=== PATIENT | female | born 1980 | race Caucasian/White ===

== ENCOUNTER 2019-02-16 15:24 | Emergency (ER) | payer MEDICARE ==
[~2019-02-16] VITALS: Ht 162.6 cm; Wt 86.2 kg
[2019-02-16 15:26] VITALS: BP 160/57
[2019-02-16] MEDS ORDERED: DIAZEPAM 5 MG TABLET ONE (15:45)
[2019-02-16] MEDS ORDERED: KETOROLAC 30 MG/1 ML ONE (15:46)
[2019-02-16] MEDS ORDERED: HYDROcodone/APAP 5/325 TABLET ONE (15:46)
[2019-02-16] MEDS ORDERED: DIAZEPAM 5 MG TABLET PO ONE (16:00)
[2019-02-16] MEDS ORDERED: KETOROLAC 30 MG/1 ML IM ONE (16:00)
[2019-02-16] MEDS ORDERED: HYDROcodone/APAP 5/325 TABLET PO ONE (16:00)
== END 2019-02-16 16:26 | disposition home or self-care (01) ==
LOC: ED 16:05
DX: S39.012A Strain of muscle, fascia and tendon of lower back, initial encounter (principal); G43.909 Migraine, unspecified, not intractable, without status migrainosus; J45.909 Unspecified asthma, uncomplicated; F17.200 Nicotine dependence, unspecified, uncomplicated; X58.XXXA Exposure to other specified factors, initial encounter; Y93.89 Activity, other specified; Y92.89 Other specified places as the place of occurrence of the external cause; Y99.8 Other external cause status
CPT/HCPCS: 96372; 99283; J1885

== ENCOUNTER 2019-02-28 07:52 | Emergency (ER) | payer MEDICARE ==
[~2019-02-28] VITALS: Ht 162.6 cm; Wt 84.4 kg
--- NOTE | 2019-02-28 07:59 | NUR ---
CALLED PATIENT NO ANSWER
--- NOTE | 2019-02-28 08:59 | NUR ---
TASK RN: PT AMBULATORY WITH STEADY GAIT TO ROOM FROM [facility] AT THIS TIME. 39 Y/O FEMALE PRESENTS TO ED WITH C/O LEFT ABD PAIN. PER PT "I'VE HAD ASTHMA FOR TWO YEARS AND A COUGH FOR TWO WEEKS. BUT MY STOMACH HURTS ON THE LEFT SIDE. IT'S LIKE A SUCTION FEELING BELOW MY RIBS. IT'S JUST ON THE LEFT SIDE. 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 I TOOK BENADRYL LAST NIGHT, TWO OF THEM. NOTHING TODAY, AND IT'S STILL THERE." PT GIVEN GOWN AND ASKED TO CHANGE. NADN. NO C/O N/V/D, TRAUMA, SYNCOPE, CP, SOB.
[2019-02-28 09:06] VITALS: BP 124/76
--- NOTE | 2019-02-28 09:35 | NUR ---
REPORT RECEIVED FROM GLORIA MUSA. PT A&O, RESPS EVEN AND UNLABORED. PT ABLE TO SPEAK IN FULL SENTENCES. PT GIVEN DC INSTRUCTIONS AND SCRIPT, EDUCATED REGARDING DC RX FOR PREDNISONE AND ALBUTEROL. PT AMB TO DC DESK WITH STEADY GAIT, NO COMPLAINT AT DC.
== END 2019-02-28 09:35 | disposition home or self-care (01) ==
LOC: ED 09:10
DX: J45.40 Moderate persistent asthma, uncomplicated (principal); L30.9 Dermatitis, unspecified; I10 Essential (primary) hypertension
CPT/HCPCS: 93005; 99283

== ENCOUNTER 2019-05-08 04:20 | Emergency (ER) | payer MEDICARE, MEDICAID ==
[~2019-05-08] VITALS: Ht 160 cm; Wt 73.0 kg
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
[2019-05-08] MEDS ORDERED: LORazepam 1MG TABLET ONE (04:57)
[2019-05-08] MEDS ORDERED: LORazepam 1MG TABLET PO ONE (05:00)
--- NOTE | 2019-05-08 05:00 | NUR ---
PT MEDICATED PER MAR
--- NOTE | 2019-05-08 05:12 | NUR ---
PT UP TO RESTROOM FOR URINE SAMPLE, EDUCATED ON CLEAN CATCH
--- NOTE | 2019-05-08 05:17 | NUR ---
PT RETURNED TO ROOM WITHOUT URINE CUP, STS I PUT IT IN THE HALLWAY. NO URINE CUP WHERE PT STS SHE PUT IT. PT RE EDUCATED ON NEED FOR URINE SAMPLE.
[2019-05-08 05:34] LABS: BASOPHILS # (AUTO) 0.03 x10^3/uL (0-0.1); BASOPHILS % (AUTO) 1 % (0-1); EOSINOPHILS # (AUTO) 0.09 x10^3/uL (0-0.4); EOSINOPHILS % (AUTO) 2 % (1-7); LYMPHOCYTES # (AUTO) 1.73 x10^3/uL (1-3.4); LYMPHOCYTES % (AUTO) 31 % (22-44); MD NO; MEAN CORPUSCULAR HEMOGLOBIN 23.9 pg (27.0-34.8); MEAN CORPUSCULAR HGB CONC 32.1 g/dL (32.4-35.8); MEAN CORPUSCULAR VOLUME 74.5 fL (80-100); MEAN PLATELET VOLUME 8.8 fL (7.4-10.4); MONOCYTES # (AUTO) 0.46 x10^3/uL (0.2-0.8); MONOCYTES % (AUTO) 8 % (2-9); NEUTROPHILS # (AUTO) 3.28 x10^3/uL (1.8-6.8); NEUTROPHILS % (AUTO) 59 % (42-75); PLATELET COUNT 332 x10^3/uL (130-400); RED BLOOD COUNT 4.46 x10^6/uL (3.82-5.3); RED CELL DISTRIBUTION WIDTH 20.2 % (9.6-15.2)
[2019-05-08 05:45] LABS: ALBUMIN 3.5 g/dL (3.4-5.0); ANION GAP 5 mmol/L (5-15); CALCIUM 8.5 mg/dL (8.5-10.1); CHLORIDE 112 mmol/L (98-107); CREATININE 0.71 mg/dL (0.55-1.02); SALICYLATE LEVEL 2.5 mg/dL (2.8-20.0)
--- NOTE | 2019-05-08 06:50 | NUR ---
REPORT RECEIVED, CARE ASSUMED.
[2019-05-08 06:55] LABS: HCG UR SG 1.013 (1.003-1.030); MICROSCOPIC AUTO
[2019-05-08 06:56] LABS: CULTURE INDICATED? YES
[2019-05-08 07:00] VITALS: BP 109/73
--- NOTE | 2019-05-08 07:00 | NUR ---
PT DOZING INTERMITTENTLY, AROUSES EASILY. PT COOPERATIVE WITH CARE, IE: V/S. PT ASKING FOR "BREAKFAST" DISCUSSED WILL REQUEST FROM DIETARY. UPDATED ON POC. WAITING FOR TEST RESULTS FOR FURTHER DISPOSITION. PT WITH BELONGINGS IN ROOM. NO OTHER NEEDS EXPRESSED AT THIS TIME.
[2019-05-08 07:05] LABS: AMPHETAMINE SCREEN, URINE Negative (Negative); BARBITURATE SCREEN, URINE Negative (Negative); BENZODIAZEPINE SCREEN, URINE Negative (Negative); CANNABINOID SCREEN, URINE Positive (Negative); COCAINE SCREEN, URINE Negative (Negative); METHADONE SCREEN, URINE Negative (Negative); OPIATE SCREEN, URINE Negative (Negative)
--- NOTE | 2019-05-08 07:29 | NUR ---
PTS "MAN" GETACHEW AT BEDSIDE. CONT TO WAIT FOR FURTHER DISPOSITION.
--- NOTE | 2019-05-08 08:11 | NUR ---
soc called for consult
--- NOTE | 2019-05-08 08:12 | NUR ---
PT PROVIDED WITH BREAKFAST. PT ASKING ABOUT GOING OUT TO SMOKE. DISCUSSED NOT GOING OUT R/T BEING IN THE HOSPITAL, NON SMOKING CAMPUS. PT STATES "I DONT WANT TO BE HERE ALL DAY" DISCUSSED TELE PSYCH EVAL. TELE PSYCH BERTRAND PLACED IN ROOM. NO OTHER NEEDS EXPRESSED AT THIS TIME.
--- NOTE | 2019-05-08 08:37 | NUR ---
SPOKE WITH DR. MORAN SOC TELE PSYCH, UPDATED ON PT. DR MORAN TO INTERVIEW PT VIEW TELE PSYCH ROBOT.
--- NOTE | 2019-05-08 09:34 | NUR ---
PT DOZING INTERMITTENLY, AROUSES EASILY. UPDATED PT ON WAITING FOR DC PAPERWORK. UNDERSTANDING VERBALIZED.
== END 2019-05-08 09:53 | disposition home or self-care (01) ==
LOC: ED 07:24
DX: F23 Brief psychotic disorder (principal); F15.959 Other stimulant use, unspecified with stimulant-induced psychotic disorder, unspecified; I10 Essential (primary) hypertension; G43.909 Migraine, unspecified, not intractable, without status migrainosus; J45.909 Unspecified asthma, uncomplicated
CPT/HCPCS: 36415; 80048; 80307; 81001; 81025; 82040; 85025; 87086; 87147; 99284

== ENCOUNTER 2019-06-30 15:35 | Emergency (ER) | payer MEDICARE, MEDICAID ==
[~2019-06-30] VITALS: Ht 162.6 cm; Wt 77.8 kg
[2019-06-30 15:38] VITALS: BP 129/99
--- NOTE | 2019-06-30 16:35 | NUR ---
CARDING DOUBLER: PT REQUESTING TO LEAVE. "[place] [facility], BUT I'LL BE BACK" PT AWARE WILL BE TAKEN OUT OF THE COMPUTER AND WILL HAVE TO CHECK BACK IN" PT LEFT AMB, GAIT STEADY.
== END 2019-06-30 16:38 | disposition left against medical advice (07) ==
LOC: ED 16:27
DX: R10.9 Unspecified abdominal pain (principal); Z53.21 Procedure and treatment not carried out due to patient leaving prior to being seen by health care provider

== ENCOUNTER 2019-09-08 10:56 | Emergency (ER) | payer MEDICARE, MEDICAID ==
[~2019-09-08] VITALS: Ht 160 cm; Wt 77.7 kg
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
[2019-09-08] MEDS ORDERED: SODIUM CHLORIDE FLUSH 10ML SYR IVF ONE (11:30)
[2019-09-08 11:34] LABS: BASOPHILS # (AUTO) 0.03 x10^3/uL (0-0.1); BASOPHILS % (AUTO) 0 % (0-1); EOSINOPHILS % (AUTO) 1 % (1-7); LYMPHOCYTES % (AUTO) 30 % (22-44); MD NO; MEAN CORPUSCULAR HEMOGLOBIN 28.7 pg (27.0-34.8); MEAN CORPUSCULAR HGB CONC 33.4 g/dL (32.4-35.8); MEAN CORPUSCULAR VOLUME 85.8 fL (80-100); MEAN PLATELET VOLUME 8.6 fL (7.4-10.4); MONOCYTES # (AUTO) 0.71 x10^3/uL (0.2-0.8); MONOCYTES % (AUTO) 9 % (2-9); NEUTROPHILS # (AUTO) 4.88 x10^3/uL (1.8-6.8); NEUTROPHILS % (AUTO) 59 % (42-75); PLATELET COUNT 327 x10^3/uL (130-400); RED BLOOD COUNT 5.12 x10^6/uL (3.82-5.3); RED CELL DISTRIBUTION WIDTH 16.4 % (9.6-15.2)
[2019-09-08 11:47] LABS: ALBUMIN 3.8 g/dL (3.4-5.0); ANION GAP 7 mmol/L (5-15); CALCIUM 8.7 mg/dL (8.5-10.1); CHLORIDE 111 mmol/L (98-107)
[2019-09-08 11:55] LABS: ALANINE AMINOTRANSFERASE 25 U/L (12-78); ALKALINE PHOSPHATASE 74 U/L (45-117); BILIRUBIN,TOTAL 0.8 mg/dL (0.2-1.0); CREATININE 0.96 mg/dL (0.55-1.02); TOTAL PROTEIN 7.5 g/dL (6.4-8.2)
--- NOTE | 2019-09-08 12:25 | NUR ---
BREAK NOTE: THE PT. WAS TAKEN TO CT SCAN.
--- NOTE | 2019-09-08 12:39 | NUR ---
PT. RETURNS FROM CT SCAN. PT. HAS THE PULSE OX AND BP CUFF IN PLACE. HOB IS ELEVATED GREATER THAN 30 DEGREES. PT. IS RESTING WITH THE SIDRAILS UP X 2 AND THE CALL LIGHT IS IN PLACE.
--- NOTE | 2019-09-08 12:53 | NUR ---
PT CHART REVIEWED AND PLACED FOR RECHECK.
--- NOTE | 2019-09-08 13:05 | NUR ---
SPOKE W/ RONNI AT [facility]. STATES SHE IS AWARE OF PT AND TO HAVE PT SENT TO THEM VIA TAXI.
[2019-09-08 13:10] VITALS: BP 100/70
--- NOTE | 2019-09-08 13:19 | NUR ---
PT AWARE SHE WILL BE TAKEN VIA TAXI TO [facility] FOR FURTHER EXAMINATION. PT AGREEABLE. TAXI VOUCHER PROVIDED. [facility] CALLED FOR PT.
== END 2019-09-08 13:33 | disposition home or self-care (01) ==
LOC: ED 11:48
DX: S10.93XA Contusion of unspecified part of neck, initial encounter (principal); E05.00 Thyrotoxicosis with diffuse goiter without thyrotoxic crisis or storm; F15.10 Other stimulant abuse, uncomplicated; F12.10 Cannabis abuse, uncomplicated; F17.200 Nicotine dependence, unspecified, uncomplicated; Y04.8XXA Assault by other bodily force, initial encounter; Y93.89 Activity, other specified; Y92.89 Other specified places as the place of occurrence of the external cause; Y99.8 Other external cause status
CPT/HCPCS: 36415; 70491; 80053; 84443; 84703; 85025; 99285